=== PATIENT | female | born 1995 | race African-American/Black ===

== ENCOUNTER 2019-05-15 08:41 | Outpatient (CLI) | payer OTHER ==
--- NOTE | 2019-05-15 11:28 | RAD ---
BIPHASIC ESOPHAGRAM: HISTORY: A 23-year-old female with odynophagia. FINDINGS: The white shoe examiner film demonstrates a normal sized heart. The lungs are clear. Swallowing was grossly normal. There is unobstructed flow of contrast through the esophagus, into the stomach. No ulcer, stricture, mass or diverticulum is seen. A tiny hiatal hernia is noted. No GE ref lux was demonstrated during the Valsalva maneuver. A 12 mm barium tablet passed promptly from the eso phagus into the stomach without stasis. IMPRESSION: Tiny hiatal hernia. POS: LEANNE
== END 2019-05-15 08:42 | disposition home or self-care (01) ==
LOC: RAD 08:41
PROVIDERS: ATTEND Family Medicine
DX: R13.10 Dysphagia, unspecified (principal); K44.9 Diaphragmatic hernia without obstruction or gangrene
CPT/HCPCS: 74220

== ENCOUNTER 2020-01-26 19:30 | Outpatient (CLI) | payer OTHER | END 2020-01-26 19:31 | disposition home or self-care (01) | LOC: SLEEPLAB 19:30 | PROVIDERS: ATTEND Internal Medicine Critical Care Medicine | DX: G47.33 Obstructive sleep apnea (adult) (pediatric) (principal) | CPT/HCPCS: 95801; 95810 ==

== ENCOUNTER 2020-02-13 19:00 | Outpatient (CLI) | payer OTHER | END 2020-02-13 19:01 | disposition home or self-care (01) | LOC: SLEEPLAB 19:00 | PROVIDERS: ATTEND Internal Medicine Critical Care Medicine | DX: G47.33 Obstructive sleep apnea (adult) (pediatric) (principal); G47.10 Hypersomnia, unspecified; E66.9 Obesity, unspecified; Z68.43 Body mass index [BMI] 50.0-59.9, adult | CPT/HCPCS: 95811 ==